=== PATIENT | female | born 2000 | race Caucasian/White ===

== ENCOUNTER 2021-02-14 00:18 | Emergency (ER) | payer MEDICAID ==
[~2021-02-14] VITALS: Ht 167.6 cm; Wt 56.7 kg
[2021-02-14 00:29] VITALS: BP_SYST 117
[2021-02-14] MEDS ORDERED: methylPREDNISolone SOD SUCC/PF 62.5 MG/ML VIAL IM ONE (01:00)
[2021-02-14] MEDS ORDERED: DIPHENHYDRAMINE HCL 12.5 MG/5 ML UDC PO ONE (01:00)
[2021-02-14] MEDS ORDERED: PRED20TA PO (02:07)
[2021-02-14] MEDS ORDERED: DIPH25CA83 PO (02:08)
[2021-02-14 02:12] VITALS: BP_SYST 117
== END 2021-02-14 02:12 | disposition home or self-care (01) ==
LOC: SED 00:18
DX: L23.7 Allergic contact dermatitis due to plants, except food (principal)
CPT/HCPCS: 96372; 99283; J2930

== ENCOUNTER 2021-10-29 17:10 | Emergency (ER) | payer MEDICAID ==
[~2021-10-29] VITALS: Ht 167.6 cm; Wt 54.4 kg
[~2021-10-29 17:10] MED LIST: DIPH25CA83 PO; PRED20TA PO
[2021-10-29 17:35] VITALS: BP_SYST 98
--- NOTE | 2021-10-29 17:41 | NUR ---
Patient triaged and placed in waiting room. VSS and patient appears in no acute distress at this time. Accompanied by mother and stepfather, awaiting available bed, and MD notified of need for MSE.
--- NOTE | 2021-10-29 18:25 | NUR ---
PATIENT COMPLAINING PAIN TO LEFT TONSIL X 2 DAYS. PATIENT REPORTS SUBJECTIVE FEVER. PATIENT REPORTS SHE IS DETOXING FROM ECSTASY, COCAINE AND METH. PAIN 10/10. NO OTHER COMPLAINTS/INJURIES PER PATIENT OR NOTED
--- NOTE | 2021-10-29 18:30 | NUR ---
ER Dr. Atkinson at bedside examining patient.
[2021-10-29] MEDS ORDERED: AMOX-426 PO (18:43)
--- NOTE | 2021-10-29 18:45 | NUR ---
Patient given written and verbal discharge instructions and verbalizes understanding. ER MD discussed with patient the results and treatment provided. Patient in stable condition. ID arm band removed. Rx of Augmentin given. Patient educated on pain management and to follow up with PMD. Pain Scale 0. Opportunity for questions provided and answered. Medication side effect fact sheet provided.
[2021-10-29 18:46] VITALS: BP_SYST 98
== END 2021-10-29 18:46 | disposition home or self-care (01) ==
LOC: SED 17:10
DX: J02.0 Streptococcal pharyngitis (principal); Z79.899 Other long term (current) drug therapy
CPT/HCPCS: 99283